=== PATIENT | male | born 1985 | race Caucasian/White ===

== ENCOUNTER 2016-10-19 17:16 | Inpatient (IN) | payer OTHER ==
[~2016-10-19] VITALS: Ht 182.9 cm; Wt 106.5 kg
[~2016-10-19 17:16] MED LIST: ABIL1TAB13 PO; ACAM0.05 PO; ATOM40CA PO; Aripiprazole PO; SERT-138 PO; TOPA50TA8 PO; ZOLO100T PO
[2016-10-19 18:32] LABS: MEAN CORPUSCULAR HEMOGLOBIN 30.1 pg (27.0-33.0); MEAN CORPUSCULAR HGB CONC 36.3 g/dl (32.0-36.5); MEAN CORPUSCULAR VOLUME 82.9 fl (80.0-96.0); RED CELL DISTRIBUTION WIDTH 12.7 % (11.5-14.5); WHITE BLOOD COUNT 9.3 K/mm3 (4.0-10.0)
[2016-10-19 19:15] LABS: ALBUMIN 4.2 GM/DL (3.2-5.2); ALBUMIN/GLOBULIN RATIO 1.08 (1.00-1.93); ALKALINE PHOSPHATASE 82 U/L (45-117); ALT/SGPT 40 U/L (12-78); ANION GAP 11 MEQ/L (8-16); AST/SGOT 30 U/L (15-37); BILIRUBIN,DIRECT < 0.1 MG/DL (0.0-0.2); BILIRUBIN,TOTAL 0.3 MG/DL (0.2-1.0); BLOOD UREA NITROGEN 14 MG/DL (7-18); CARBON DIOXIDE LEVEL 24 MEQ/L (21-32); CHLORIDE LEVEL 109 MEQ/L (98-107); CREATININE FOR GFR 1.32 MG/DL (0.70-1.30); GLOMERULAR FILTRATION RATE > 60.0 (>60); GLUCOSE, FASTING 106 MG/DL (70-105); POTASSIUM SERUM 3.4 MEQ/L (3.5-5.1); SODIUM LEVEL 144 MEQ/L (136-145); TOTAL PROTEIN 8.1 GM/DL (6.4-8.2)
[2016-10-19 19:55] LABS: METHADONE URINE NEGATIVE (NEGATIVE)
[2016-10-19] MEDS ORDERED: ACETAMINOPHEN TAB 650MG DOSE (2X325MG) PO PRN (20:15)
[2016-10-19] MEDS ORDERED: MOM 30ML SUSPENSION UDC PO PRN (20:15)
[2016-10-19] MEDS ORDERED: MAALOX 30 ML SUSP *UDC PO PRN (20:15)
[2016-10-19] MEDS ORDERED: TOPA1TAB PO (21:15)
[2016-10-19] MEDS ORDERED: ZOLO100T PO (21:15)
[2016-10-19] MEDS: TOPIRAMATE (TopAMAX) 25 MG TAB PO SCH (21:16)
[2016-10-19] MEDS: QUEtiapine FUMARATE 100 MG TAB PO SCH (21:16)
[2016-10-20 07:44] VITALS: BP 138/78
[2016-10-20] MEDS: TOPIRAMATE (TopAMAX) 25 MG TAB PO SCH ×2 (08:53→20:32)
[2016-10-20] MEDS: SERTRALINE 100 MG TAB PO SCH (08:53)
[2016-10-20] MEDS: hydrOXYzine 50 MG TAB PO PRN ×2 (10:21→20:32)
[2016-10-20] MEDS: OLANZapine 5 MG TAB PO PRN ×2 (10:21→20:32)
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
[2016-10-20 18:00] VITALS: BP 126/88
[2016-10-20] MEDS: QUEtiapine FUMARATE 100 MG TAB PO SCH (20:32)
[2016-10-21 07:00] VITALS: BP 129/79
[2016-10-21] MEDS: TOPIRAMATE (TopAMAX) 25 MG TAB PO SCH ×2 (07:54→20:07)
[2016-10-21] MEDS: SERTRALINE 100 MG TAB PO SCH (07:54)
[2016-10-21] MEDS ORDERED: cloNIDine 0.1 MG TAB PO PRN (14:30)
[2016-10-21] MEDS: OLANZapine 5 MG TAB PO PRN ×2 (15:50→20:07)
[2016-10-21] MEDS: hydrOXYzine 50 MG TAB PO PRN (17:26)
[2016-10-21 18:00] VITALS: BP 136/86
[2016-10-21] MEDS: QUEtiapine FUMARATE 100 MG TAB PO SCH (20:07)
--- NOTE | 2016-10-21 22:40 | HPE ---
DATE OF ADMISSION: 10/19/2016 HISTORY OF PRESENT ILLNESS: Please refer to psychiatric history and evaluation for further details on this admission. This examination and history is intended for medical issues, which may need treatment, followup or consultation on this 30-year-old male. ALLERGIES: No known allergies. SOCIAL HISTORY: He is . He smokes one pack of cigarettes per day. He states that he no longer drinks any alcohol. Denies using any recreational drugs. PAST MEDICAL HISTORY: Current back pain, depression, tobacco use. PAST SURGICAL HISTORY: Negative. HOME MEDICATIONS: - sertraline 100 mg by mouth daily - Topamax 25 mg by mouth twice a day LABORATORY DATA: WBC 9.3, hemoglobin 15.0, hematocrit 41.4, platelets 289. Sodium 144, potassium 3.4, chloride 109, CO2 of 24, BUN and creatinine 14 and 1.32. Toxicology was negative. Testing for chlamydia and gonorrhea were negative. REVIEW OF SYSTEMS: Ten systems review was done. Other than current back pain, patient had no complaints. PHYSICAL EXAMINATION: GENERAL: 30-year-old cooperative male in no acute distress. Height 72 inches, weight 104 kg, Body Mass Index (BMI) 31.2. Blood pressure 126/88, pulse 85, respirations 16, temperature 97.7. The patient is alert and oriented times three. HEENT: Pupils are equal and reactive to light. Extraocular muscles intact. Sclerae clear. Conjunctivae normal. No facial asymmetry. Pharynx, gums and tongue pink and moist. Tongue is midline. NECK: Supple without lymphadenopathy. No thyromegaly. No goiter. Carotids 2+ without bruit. CHEST: Clear to auscultation without wheeze or retraction. HEART: Regular. ABDOMEN: Benign. Bowel sounds positive. GENITOURINARY/RECTAL: Not done. EXTREMITIES: Equal strength, full range of motion. No cyanosis, clubbing or edema. Peripheral pulses equal and palpable bilaterally. SKIN: Warm and dry. Bilateral ear lobes have ear gauges in them. He has a pierced tongue. IMPRESSION/PLAN: 1. Psychiatric plan per psychiatry. 2. The patient requests testing for hepatitis, especially hepatitis B. Hepatitis profile ordered. Hepatitis C lab ordered as requested.
[2016-10-22 06:14] VITALS: BP 151/83
[2016-10-22] MEDS: SERTRALINE 100 MG TAB PO SCH (08:10)
[2016-10-22] MEDS: TOPIRAMATE (TopAMAX) 25 MG TAB PO SCH ×2 (08:11→20:04)
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
[2016-10-22] MEDS: OLANZapine 5 MG TAB PO PRN ×2 (12:50→20:04)
[2016-10-22] MEDS: buPROPion 100 MG TAB PO SCH (12:52)
[2016-10-22 18:00] VITALS: BP 132/80
[2016-10-22] MEDS: QUEtiapine FUMARATE 100 MG TAB PO SCH (20:04)
[2016-10-23 07:03] VITALS: BP 141/91
[2016-10-23] MEDS: SERTRALINE 100 MG TAB PO SCH (08:00)
[2016-10-23] MEDS: TOPIRAMATE (TopAMAX) 25 MG TAB PO SCH (08:00)
[2016-10-23] MEDS: buPROPion 100 MG TAB PO SCH (08:00)
[2016-10-23] MEDS: hydrOXYzine 50 MG TAB PO PRN (09:52)
[2016-10-23] MEDS: OLANZapine 5 MG TAB PO PRN (09:52)
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
[2016-10-23] MEDS ORDERED: OLAN5TAB PO (13:45)
[2016-10-23] MEDS ORDERED: TOPA1TAB PO (13:45)
[2016-10-23] MEDS ORDERED: BUPR50TA PO (13:45)
[2016-10-23] MEDS ORDERED: HYDRO50TAB PO (13:45)
[2016-10-23] MEDS ORDERED: CLONI1TA PO (13:45)
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
== END 2016-10-23 14:00 | disposition home or self-care (01) | DRG 882 ==
LOC: M ED 17:16 → M ED INP 20:14 → M PSY 10-20 00:45
PROVIDERS: ADMIT Psychiatry & Neurology Psychiatry; ATTEND Psychiatry & Neurology Psychiatry
DX: F43.10 Post-traumatic stress disorder, unspecified (principal); F31.81 Bipolar II disorder; F60.81 Narcissistic personality disorder; F90.8 Attention-deficit hyperactivity disorder, other type; R45.850 Homicidal ideations; Z79.899 Other long term (current) drug therapy; F17.210 Nicotine dependence, cigarettes, uncomplicated

== ENCOUNTER 2016-11-01 19:17 | Emergency (ER) | payer OTHER ==
[~2016-11-01] VITALS: Ht 193 cm; Wt 107.3 kg
[~2016-11-01 19:17] MED LIST changes: +BUPR50TA PO; +CLONI1TA PO; +HYDRO50TAB PO; +OLAN5TAB PO; +TOPA1TAB PO
[2016-11-01] MEDS ORDERED: SERT50TA PO (19:25)
[2016-11-01 19:35] VITALS: BP 110/80
== END 2016-11-01 21:16 | disposition home or self-care (01) ==
LOC: M ED 19:17
DX: Z60.9 Problem related to social environment, unspecified (principal); Z59.9 Problem related to housing and economic circumstances, unspecified

== ENCOUNTER 2016-11-03 10:53 | Inpatient (IN) | payer OTHER ==
[~2016-11-03] VITALS: Ht 182.9 cm; Wt 106.3 kg
[2016-11-03] MEDS: NICOTINE 21MG/24HR 1 EA TRANSDERMAL TD SCH (09:00)
[~2016-11-03 10:53] MED LIST changes: +SERT50TA PO
[2016-11-03 11:37] LABS: MEAN CORPUSCULAR HEMOGLOBIN 30.5 pg (27.0-33.0); MEAN CORPUSCULAR VOLUME 82.9 fl (80.0-96.0); RED CELL DISTRIBUTION WIDTH 12.8 % (11.5-14.5); WHITE BLOOD COUNT 8.6 K/mm3 (4.0-10.0)
[2016-11-03 11:42] LABS: MEAN CORPUSCULAR HGB CONC 35.9 g/dl (32.0-36.5)
[2016-11-03 12:05] LABS: ALBUMIN 3.8 GM/DL (3.2-5.2); ALKALINE PHOSPHATASE 80 U/L (45-117); ALT/SGPT 45 U/L (12-78); ANION GAP 8 MEQ/L (8-16); AST/SGOT 32 U/L (15-37); BILIRUBIN,DIRECT 0.1 MG/DL (0.0-0.2); BILIRUBIN,TOTAL 0.4 MG/DL (0.2-1.0); BLOOD UREA NITROGEN 9 MG/DL (7-18); CARBON DIOXIDE LEVEL 25 MEQ/L (21-32); CHLORIDE LEVEL 109 MEQ/L (98-107); CREATININE FOR GFR 1.12 MG/DL (0.70-1.30); GLOMERULAR FILTRATION RATE > 60.0 (>60); GLUCOSE, FASTING 107 MG/DL (70-105); POTASSIUM SERUM 3.5 MEQ/L (3.5-5.1); SODIUM LEVEL 142 MEQ/L (136-145); TOTAL PROTEIN 7.6 GM/DL (6.4-8.2)
[2016-11-03 12:23] LABS: METHADONE URINE NEGATIVE (NEGATIVE)
[2016-11-03] MEDS ORDERED: MOM 30ML SUSPENSION UDC PO PRN (14:00)
[2016-11-03] MEDS ORDERED: MAALOX 30 ML SUSP *UDC PO PRN (14:00)
[2016-11-03] MEDS ORDERED: OLANZapine 5 MG TAB PO PRN (14:00)
[2016-11-03] MEDS ORDERED: ACETAMINOPHEN TAB 650MG DOSE (2X325MG) PO PRN (14:00)
[2016-11-03] MEDS ORDERED: LORazepam 2 MG TAB PO STA (14:15)
[2016-11-03] MEDS ORDERED: HYDR50TA70 PO (14:19)
[2016-11-03] MEDS ORDERED: CLON-412 PO (14:19)
[2016-11-03] MEDS ORDERED: SERT50TA PO (14:19)
[2016-11-03] MEDS ORDERED: BENA25TA10 PO (14:19)
[2016-11-03] MEDS ORDERED: [UNRECOGNIZED DRUG - OTHER] PO (14:19)
[2016-11-03] MEDS ORDERED: TOPI100T9 PO (14:19)
[2016-11-03 15:01] VITALS: BP 138/82
[2016-11-03] MEDS: risperiDONE 0.5 MG TAB PO SCH ×2 (16:00→20:59)
[2016-11-03 18:00] VITALS: BP 190/109
[2016-11-03] MEDS: traZODone 50 MG TAB PO PRN (20:59)
[2016-11-03] MEDS: hydrOXYzine 50 MG TAB PO PRN (20:59)
[2016-11-03] MEDS: cloNIDine 0.1 MG TAB PO PRN (20:59)
[2016-11-04 06:40] VITALS: BP 122/64
[2016-11-04] MEDS: NICOTINE 21MG/24HR 1 EA TRANSDERMAL TD SCH (09:00)
[2016-11-04] MEDS: risperiDONE 0.5 MG TAB PO SCH ×3 (09:10→21:00)
[2016-11-04] MEDS: TOPIRAMATE (TopAMAX) 25 MG TAB PO SCH (09:10)
[2016-11-04] MEDS: SERTRALINE HCL 50 MG TAB PO SCH (09:10)
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
[2016-11-04] MEDS: hydrOXYzine 50 MG TAB PO PRN (14:34)
[2016-11-04] MEDS: cloNIDine 0.1 MG TAB PO PRN (17:31)
[2016-11-04 18:00] VITALS: BP 129/70
[2016-11-04] MEDS ORDERED: SIMETHICONE 80 MG CHEW TAB PO PRN (19:00)
[2016-11-04] MEDS: traZODone 50 MG TAB PO PRN (21:00)
--- NOTE | 2016-11-04 21:16 | HPE ---
DATE OF ADMISSION: 11/03/2016 HISTORY OF PRESENT ILLNESS: Please refer to psychiatric history and evaluation for further details on this admission. This examination and history is intended for medical issues, which may need treatment, followup or consult on this 30-year-old male. ALLERGIES: No known allergies. SOCIAL HISTORY: . Smokes one pack of cigarettes per day. Does not use recreational drugs. He has tried marijuana approximately five days ago. PAST MEDICAL HISTORY: Significant for recurrent back pain, depression, tobacco use. PAST SURGICAL HISTORY: Negative. LABORATORY DATA: CBC was normal. Sodium, potassium, chloride, CO2 normal. REVIEW OF SYSTEMS: 10-system review was done. Other than chronic back pain, had no complaints. PHYSICAL EXAMINATION: GENERAL: A 30-year-old cooperative male in no acute distress. The patient is alert and oriented times three. VITAL SIGNS: Stable. Height is 70 inches. Weight 106.3 kg. BMI 31.8. Blood pressure 138/82, pulse 88, respirations 16, temperature 98.6. HEENT: Pupils equal and react to light. Extraocular movement intact. Sclerae clear. Conjunctivae normal. No facial asymmetry. Pharynx, tongue gums pink and moist. Tongue is midline. NECK: Supple without lymphadenopathy. No thyromegaly. No goiter. CHEST: Clear to auscultation without wheeze or retraction. HEART: Regular. ABDOMEN: Benign. Bowel sounds are positive. GENITOURINARY/RECTAL: Not done. EXTREMITIES: No cyanosis, clubbing or edema. Peripheral pulses equal and palpable bilaterally. Negative Sunil's sign. SKIN: Warm and dry. IMPRESSION AND PLAN:
[2016-11-05] MEDS: risperiDONE 0.5 MG TAB PO SCH ×2 (08:24→15:55)
[2016-11-05] MEDS: SERTRALINE HCL 50 MG TAB PO SCH (08:24)
[2016-11-05] MEDS: NICOTINE 21MG/24HR 1 EA TRANSDERMAL TD SCH (08:25)
[2016-11-05] MEDS: TOPIRAMATE (TopAMAX) 25 MG TAB PO SCH (08:25)
[2016-11-05] MEDS: cloNIDine 0.1 MG TAB PO PRN (10:23)
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
[2016-11-05] MEDS ORDERED: cloNIDine 0.2 MG TAB PO PRN (16:00)
[2016-11-05 18:00] VITALS: BP 130/64
[2016-11-05] MEDS: traZODone 50 MG TAB PO PRN (20:58)
[2016-11-05] MEDS ORDERED: risperiDONE 1 MG TAB PO SCH (21:00)
--- NOTE | 2016-11-05 21:26 | ECGEPIP ---
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
[2016-11-06 06:00] VITALS: BP 140/76
[2016-11-06] MEDS: NICOTINE 21MG/24HR 1 EA TRANSDERMAL TD SCH (08:04)
[2016-11-06] MEDS: hydrOXYzine 50 MG TAB PO PRN (08:08)
[2016-11-06] MEDS: TOPIRAMATE (TopAMAX) 25 MG TAB PO SCH (08:08)
[2016-11-06 08:09] VITALS: BP 140/76
[2016-11-06] MEDS ORDERED: SERTRALINE 100 MG TAB PO SCH (09:00)
[2016-11-06] MEDS ORDERED: TRAZO50TA PO (14:35)
[2016-11-06] MEDS ORDERED: RISP1TAB42 PO (14:35)
[2016-11-06] MEDS ORDERED: SERT50TA PO (14:36)
--- NOTE | 2016-11-10 14:20 | MHDSPDOC ---
[facility] Discharge Summary Discharge Summary DATE OF ADMISSION: Nov 03, 2016 at 14:13 DATE OF DISCHARGE: Nov 06, 2016 at 15:00 Late entry for 11/06/16 DISCHARGE DIAGNOSES: REASON FOR ADMISSION: pts Psychiatrist's called [place] police after pt started crying during an appointment. Pt denies verbalizing anything that was suicidal in nature but MD fear he would become suicidal and also fears for the safety of pts estranged Nicolasa. Pt has had thoughts and dreams in the past about harming her and there is an order of protection in effect. In fact the order of protection that prevents him from seeing his children is a huge stressor for Sam. He, on the other hand, sabotages things by refusing to pay child support and violating the order. Pt has spent time in penitentiary for these offenses. CONSULTANTS INVOLVED:pharmacy, nursing, medicine, psychiatry, [place] housing personnel TREATMENT AND PROGRESS ON THE UNIT : Pt present with his typical suspiciousness and inability to see his role in things. He was recently discharged from the unit and in less than a week is back. He did not follow through on going to [employer] [facility]. He has an appt 11/10 with the publicity person about his separation from his and lack of visitation. He was encouraged to get a legal separation with visitation spelled out and to resume paying child support. He objects to how Nicolasa spends the money but the court is not concerned about that. He can't let go of this and many other things he plans Nicolasa for. Pt calmed down after 24 hours and was more reasonable and willing to work on treatment plans and discharge plans. HOSPITAL COURSE: pt adhered to medications as prescribed. he indicated he was fatigued with dosing Risperdol tid but it did exert good control over his anxiety and skewed thinking. It was combined to a one time dose of 1.5 mg at hs. He slept well. He never had one screaming event on the unit. He mumbled to himself at times while pacing in the hallway but otherwise his behavior was not too odd. He was not threatening towards peers or staff. He ate well and followed protocols. He was not appropriate in groups. He was cursing a lot and was asked not to attend as his language did upset the others. Pt expressed interest in having his own apartment and the resources of the [place] were consulted. they met with him and explained their program. He could obtain security deposit and 1st months rent but he would have to find the apartment. He wanted to look in [facility]. It seemed like a good solution for when he needed time alone to de-esculate and also if he is allowed visitation he would have a place to take his children. Nhi, his girlfriend was totally against this as she felt it would have a negative impact on their relationship and her children who call him dad. This was left up in the air for Sam to pursue in the future if necessary. For now he wanted to return to Nhi's residence. MENTAL STATUS EXAMINATION ON DISCHARGE: Patient is a 30-year old male, who is stocky in build, wearing street clothes, plugs in ears, piercing in tongue, poor eye contact and odd expressions at times. Speech: Is spontaneous Language skills are intact. Thought processes including: linear Thought content:perseverates about the past. Abstract reasoning, and computation : fair. Description of associations: good. Description of abnormal or psychotic thoughts: no thoughts of harming self or others including , pts behaviors and decisions are self-defeating Judgment: limited Insight: very limited. Orientation: well oriented in all spheres. Recent and remote memory:intact Attention span and concentration: good Fund of knowledge: Full Mood: dysphoric. Affect: controlled. MEDICATIONS ON DISCHARGE: - risperidone for thought disorder. - clonidine for relaxation/anxiety - sertraline for mood trazodone for sleep hydroxyzine for anxiety PLAN/FOLLOWUP ARRANGEMENTS: [facility] outpatient in [place] for med mgt. [address] Young then transfer to [facility]. Therapy for impulse control, personality disorder. Complete application for SSDI. Keep appt with garage laborer and work toward legalizing separation, getting visitation and resuming child support payments. The amount of time spent in the coordination of care for this patient was approximately 45 minutes. Vital Signs/I&Os Vital Signs Date Time Temp Pulse Resp B/P (MAP) Pulse Ox O2 Delivery O2 Flow Rate FiO2 11/06/16 08:09 140/76 11/06/16 06:00 98.8 121 20 11/04/16 06:40 Room Air Medications Scheduled Clonidine Hydrochloride (Clonidine HCl) 0.1 Mg Tab, 0.1 MG PO TID, (Reported) Risperidone (Risperdal) 1 Mg Tab, 1.5 MG PO QHS for AGITATION for 7 Days, #11 take 1.5 tabs at bedtime Sertraline Hcl (Sertraline HCl) 50 Mg Tab, 200 MG PO DAILY for ANXIETY for 7 Days, #14 [Detox Flush] , 1 DOSE PO ASDIRECTED, (Reported) Scheduled PRN Diphenhydramine Hcl (Benadryl Allergy) 25 Mg Tab, 50 MG PO for SLEEP, (Reported) Hydroxyzine HCl (Hydroxyzine HCl) 50 Mg Tab, 50 MG PO Q4H PRN for ANXIETY, ( Reported) Trazodone HCl (Trazodone HCl) 50 Mg Tab, 50 MG PO QHSP PRN for INSOMNIA for 7 Days, #7 Allergies Coded Allergies: No Known Allergies (Unverified , 10/19/16) Romelia Anaya Nov 10, 2016 14:20
== END 2016-11-06 15:00 | disposition home or self-care (01) | DRG 882 ==
LOC: M ED 10:53 → M ED INP 14:13 → M PSY 14:50
PROVIDERS: ADMIT Psychiatry & Neurology Psychiatry; ATTEND Psychiatry & Neurology Psychiatry
DX: F43.10 Post-traumatic stress disorder, unspecified (principal); R45.851 Suicidal ideations; F32.9 Major depressive disorder, single episode, unspecified; F17.210 Nicotine dependence, cigarettes, uncomplicated; F60.81 Narcissistic personality disorder; M54.9 Dorsalgia, unspecified; Z79.899 Other long term (current) drug therapy